=== PATIENT | female | born 1995 | race American Indian/Alaskan Native ===

== ENCOUNTER 2019-12-31 23:19 | Inpatient (IN) | payer OTHER ==
[2020-01-01] MEDS ORDERED: MINERAL OIL 30 ML ORAL LIQD PO PRN (00:22)
[2020-01-01] MEDS ORDERED: BUTORPHANOL 2 MG/1 ML INJ IV PRN (00:22)
[2020-01-01] MEDS ORDERED: AMPICILLIN/NS 2 GM/100 ML 2 GM/100 ML BAG IV ONE (00:22)
[2020-01-01] MEDS ORDERED: TERBUTALINE 1 MG/1 ML INJ SUB-Q PRN (00:22)
[2020-01-01] MEDS ORDERED: LIDOCAINE (2%) 20 MG/1 ML VIAL 20 ML MDV INFILTRATI ONE (00:22)
[2020-01-01] MEDS ORDERED: ePHEDrine SULFATE 50 MG/1 ML INJ IV PRN ×2 (00:22→11:18)
[2020-01-01] MEDS ORDERED: OXYTOCIN DRIP 30 UNITS/500 ML BAG IV SCH ×2 (01:00)
[2020-01-01] MEDS: LACTATED RINGERS 1,000 ML IV SCH ×3 (01:21→20:16)
[2020-01-01 02:38] LABS: Hematocrit 32.3 % (30.3-42.9); Hemoglobin 10.8 gm/dl (10.1-14.3); Mean Corpuscular HGB Conc 34 % (30-34); Mean Corpuscular Volume 94 fl (79-97); Platelet Count 306 K/mm3 (140-440); Red Blood Count 3.45 M/mm3 (3.65-5.03); Red Cell Distribution Width 15.2 % (13.2-15.2)
[2020-01-01] MEDS: AMPICILLIN/NS 1 GM/50 ML 1 GM/50 ML BAG IV SCH ×4 (05:10→18:40)
--- NOTE | 2020-01-01 07:46 | History and Physical Report ---
History of Present Illness Date of examination: 01/01/20 Date of admission: 01/01/20 00:22 Chief complaint: Water broke History of present illness: Pt is a 24 yo at 38w1d EGA who presents reporting leaking clear fluid since 2244 last night. She reports no movement this morning, but positive movement last night. She reports contractions since receiving Pitocin and denies vaginal bleeding. [facility] since the first trimester. Her course has been complicated by Chlamydia, treated with negative test of cure, obesity, and elevated BP without diagnosis of hypertension. She is GBS negative. Past History Past Medical History: no pertinent history Past Surgical History: no surgical history [employer] History: chlamydia (this , treated with negative test of cure) Family/Genetic History: none Social history: no significant social history - Obstetrical History Expected Date of Delivery: 01/14/20 Actual Gestation: 38 Week(s) 1 Day(s) : 1 Para: 0 Medications and Allergies Allergies Allergy/AdvReac Type Severity Reaction Status Date / Time morphine Allergy Anaphylaxis Verified 01/01/20 00:21 Home Medications Medication Instructions Recorded Confirmed Last Taken Type No Known Home Medications [No 01/01/20 01/01/20 Unknown History Reported Home Medications] Active Meds: Active Medications Butorphanol Tartrate (Stadol) 1 mg IV Q2H PRN PRN Reason: Pain, Moderate(4-6) LABOR PAIN Ephedrine Sulfate (Ephedrine Sulfate) 10 mg IV Q2M PRN PRN Reason: Hypotension Oxytocin/Sodium Chloride (Pitocin/Ns 30 Unit/500ml) 30 units in 500 mls @ 2 mls/hr IV TITR ZACHARIAH; Protocol Last Titration: 01/01/20 05:58 Dose: 4 mls/hr, 4 mls/hr Documented by: Lactated Ringer's (Lactated Ringers) 1,000 mls @ 125 mls/hr IV DIRECT ZACHARIAH Last Admin: 01/01/20 01:21 Dose: 125 mls/hr Documented by: Oxytocin/Sodium Chloride (Pitocin/Ns 30 Unit/500ml) 30 units in 500 mls @ 40 mls/hr IV TITR ZACHARIAH; Protocol Ampicillin Sodium (Ampicillin/Ns 1 Gm/50 Ml) 1 gm in 50 mls @ 100 mls/hr IV Q4HR ZACHARIAH; Protocol Last Admin: 01/01/20 05:10 Dose: 100 mls/hr Documented by: Mineral Oil (Mineral Oil) 30 ml PO QHS PRN PRN Reason: Constipation Terbutaline Sulfate (Brethine) 0.25 mg SUB-Q ONCE PRN PRN Reason: Hyperstimulation/Hypertonicity Review of Systems All systems: negative Genitourinary: leakage of fluid, contractions, no vaginal bleeding - Vital Signs Vital signs: Vital Signs Pulse BP 118 H 137/86 12/31/19 23:49 12/31/19 23:49 Temp Pulse Resp BP Pulse Ox 97.7 F 117 H 24 171/96 98 01/01/20 05:15 01/01/20 07:40 01/01/20 00:48 01/01/20 07:26 01/01/20 07:40 - Physical Exam Lungs: Positive: Normal air movement Abdomen: Positive: soft Genitourinary (Female): Positive: normal external genitalia, normal perenium. Negative: perineal/vulvar lesions Uterus: Positive: enlarged (gravid) - Obstetrical FHR: category 1 Uterine Contraction Monitor Mode: External Cervical Dilatation: 4 Cervical Effacement Percentage: 50 station: -3 Uterine Contraction Frequency (min): 3 Uterine Contraction Duration: 50 Uterine Contraction Pattern: Regular Uterine Tone Measurement Phase: Contraction Uterine Contraction Intensity: Moderate Results Result Diagrams: 01/01/20 02:22 Abnormal lab results 01/01/20 Range/Units 02:22 RBC 3.45 L (3.65-5.03) M/mm3 All other labs normal. Assessment and Plan A: 24 yo at 38w1d EGA Membranes ruptured x9 hours GBS negative Obesity Chlamydia this Elevated BP once this without diagnosis of hypertension P: Admit to L&D Pitocin augmentation IUPC and FSE placed Anticipate
[2020-01-01 09:27] LABS: Alanine Aminotransferase 8 units/L (7-56); Albumin 2.9 g/dL (3.9-5); BUN/Creatinine Ratio 8; Blood Urea Nitrogen 3 mg/dL (7-17); Calcium 8.4 mg/dL (8.4-10.2); Hemolysis Index 12; Uric Acid 3.7 mg/dL (3.5-7.6)
[2020-01-01] MEDS: ONDANSETRON 4 MG/2 ML INJ IV PRN ×2 (10:49→23:49)
[2020-01-01] MEDS ORDERED: PROMETHAZINE 25 MG TAB PO PRN (11:00)
[2020-01-01] MEDS ORDERED: NALOXONE 2 MG/2 ML INJ IV PRN (11:18)
--- NOTE | 2020-01-01 11:20 | Anesthesia Consultation ---
Anesthesia Consult and Med Hx Date of service: 01/01/20 - Airway Anesthetic Teeth Evaluation: Good, Poor ROM Head & Neck: Adequate Mental/Hyoid Distance: Adequate Mallampati Class: Class III Intubation Access Assessment: Good - Pulmonary Exam CTA: Yes - Cardiac Exam Cardiac Exam: RRR - Pre-Operative Health Status ASA Pre-Surgery Classification: ASA3 Proposed Anesthetic Plan: Epidural - Pulmonary Hx Smoking: No Hx Asthma: No Hx Respiratory Symptoms: No SOB: No COPD: No Home Oxygen Therapy: No Hx Pneumonia: No Hx Sleep Apnea: No - Cardiovascular System Hx Hypertension: No Hx Coronary Artery Disease: No Hx Heart Attack/AMI: No Hx Angina: No Hx Percutaneous Transluminal Coronary Angioplasty (PTCA): No Hx Cardia Arrhythmia: No Hx Pacemaker: No Hx Internal Defibrillator: No Hx Valvular Heart Disease: No Hx Heart Murmur: No - Central Nervous System Hx Neuromuscular Disorder: No Hx Seizures: No CVA: No Hx Back Pain: Yes Hx Psychiatric Problems: No - Gastrointestinal Hx Ulcer: No Hx Gastroesophageal Reflux Disease: Yes - Endocrine Hx Renal Disease: No Hx End Stage Renal Disease: No Hx Cirrhosis: No Hx Liver Disease: No Hx Insulin Dependent Diabetes: No Hx Non-Insulin Dependent Diabetes: No Hx Thyroid Disease: No Hx Hypothyroidism: No Hx Hyperthyroidism: No - Hematic Hx Anemia: No Hx Sickle Cell Disease: No - Other Systems Hx Alcohol Use: No Hx Substance Use: No Hx Cancer: No Hx Obesity: Yes
[2020-01-01] MEDS ORDERED: DEXMEDETOMIDINE 200 MCG/2 ML VIAL IV ONE (11:21)
[2020-01-01] MEDS ORDERED: fentaNYL-BUPIV 2 MCG/ML-0.125% 200 MCG/100 ML BAG EPIDURAL SCH (12:00)
--- NOTE | 2020-01-01 12:19 | Progress Note ---
Labor Epidural - Labor Epidural Start Time: 11:27 Stop Time: 11:52 Performed by:: MARLIN NAILS Procedure: Patient is requesting combined spinal epidural for labor and pain. H&P, labs were reviewed. All questions and concerns were answered. Informed consent was obtained. Timeout performed. Patient in sitting position on side of bed. Sterile prep and drape was performed. 3 mL 1% lidocaine skin wheal at L [3]-L [4]. 18-gauge Touhy epidural needle advanced to [id number] using air technique, [8]. 27-gauge spinal needle advanced, positive free-flowing CSF. Spinal dose of [precedex 10 mcg]. Epidural catheter advanced to [12] cm. [-] Aspiration, [-] test dose. Sterile dressing applied. Patient tolerated procedure well.
--- NOTE | 2020-01-01 20:18 | Event Note ---
Date: 01/01/20 Pt now comfortable with epidural. Category II tracing. SVE: 9.5/100/+1. Continue routine intrapartum care.
[2020-01-01] MEDS ORDERED: FAMOTIDINE 20 MG/2 ML INJ IV ONE (21:19)
[2020-01-01] MEDS ORDERED: FAMOTIDINE 20 MG/2 ML INJ IV SCH (21:30)
[2020-01-01] MEDS ORDERED: GENTAMICIN 200 MG in SODIUM CHLORIDE 0.9% 100 ML IV SCH (22:00)
--- NOTE | 2020-01-01 22:06 | Event Note ---
Date: 01/01/20 S: Temp 100.1. Epidural off. Pt more uncomfortable with contractions. Category II tracing. SVE: /+2. Pt unable to feel to push. Pt developing chorioamnionitis. Add Gentamicin to antibiotic regimen. Closely monitor maternal and status.
[2020-01-01] MEDS ORDERED: GENTAMICIN 130 MG in SODIUM CHLORIDE 0.9% 100 ML IV SCH (22:15)
--- NOTE | 2020-01-01 23:26 | Procedure Note ---
OB Delivery Note - Delivery Date of Delivery: 01/01/20 Surgeon: ROSALVA MATTHEWS Estimated blood loss: 300cc - Vaginal Delivery presentation: vertex Delivery position: OA Intrapartum events: PROM->1hr before delivery, prolonged active phase, mult.variable deceleratio Delivery induction: none Delivery augmentation: pitocin Delivery monitor: external FHT, external uterine Route of delivery: Delivery placenta: spontaneous Delivery cord: 3 umbilical vessels Episiotomy: none Delivery laceration: none Anesthesia: epidural - A at 1 minute: 8 at 5 minutes: 9 Infant Gender: Male (3076g (6lb 12.5oz) @ 2306pm)
[2020-01-02] MEDS ORDERED: IBUPROFEN 600 MG TAB PO SCH (01:00)
[2020-01-02] MEDS ORDERED: LANOLIN/ZINC/DIMETHICONE (LANSINOH) 7 GM TP PRN ×2 (02:09)
[2020-01-02] MEDS ORDERED: MAGNESIUM HYDROXIDE (MOM) ORAL LIQD UDC PO PRN (02:09)
[2020-01-02] MEDS ORDERED: WITCH HAZEL/ GLYCERIN PAD TP PRN (02:09)
[2020-01-02] MEDS ORDERED: ACETAMINOPHEN 325 MG TAB PO PRN (02:09)
[2020-01-02] MEDS ORDERED: ONDANSETRON 4 MG/2 ML INJ IV PRN (02:09)
[2020-01-02] MEDS ORDERED: diphenhydrAMINE 25 MG CAP PO PRN (02:09)
[2020-01-02] MEDS ORDERED: OXYTOCIN DRIP 30 UNITS/500 ML BAG IV SCH (02:09)
[2020-01-02] MEDS ORDERED: PROMETHAZINE 25 MG TAB PO PRN (02:09)
[2020-01-02] MEDS ORDERED: PROMETHAZINE 25 MG RECT SUPP PR PRN (02:09)
[2020-01-02] MEDS ORDERED: BENZOCAINE/MENTHOL 20/0.5% TOP SPRAY 56 GM TP PRN (02:09)
[2020-01-02] MEDS: IBUPROFEN 600 MG TAB PO SCH ×4 (05:46→23:18)
--- NOTE | 2020-01-02 08:11 | Progress Note ---
Assessment and Plan A: PPD1 s/p and intraamniotic infection s/p amp/gent Gestational hypertension Afebrile Awaiting H&H P: Routine care Closely monitor clinical status Subjective - Subjective Date of service: 01/02/20 Principal diagnosis: s/p , intraamniotic infection Interval history: PPD1 s/p , prolonged ROM with fever Tmax 100.1F, currently afebrile. Occasional mild range BP noted, pt denies ZENDEJAS, scotomata, or face/hand swelling. Patient reports: appetite normal, voiding normally, pain well controlled, ambulating normally : doing well, bottle feeding Objective - Vital Signs Latest vital signs: Vital Signs Temp Pulse Resp BP BP BP Pulse Ox 01/02/20 05:50 98.0 F 116 H 20 119/72 98 01/02/20 05:46 20 01/02/20 02:05 98.3 F 120 H 20 140/86 99 01/02/20 01:27 98.8 F 01/02/20 00:49 127 H 132/69 01/02/20 00:18 125 H 132/83 01/01/20 23:20 130 H 100 01/01/20 23:18 127 H 119/58 01/01/20 23:15 128 H 99 01/01/20 23:10 134 H 98 01/01/20 23:09 98.6 F 01/01/20 22:59 75 L 01/01/20 22:50 88 01/01/20 22:46 137 H 98 01/01/20 22:41 130 H 99 01/01/20 22:39 82 L 01/01/20 22:35 143 H 82 L 01/01/20 22:33 80 L 01/01/20 22:30 134 H 99 01/01/20 22:25 134 H 100 01/01/20 22:20 133 H 100 01/01/20 22:19 134 H 131/71 01/01/20 22:17 98.5 F 01/01/20 22:15 131 H 100 01/01/20 22:10 130 H 100 01/01/20 22:05 146 H 100 01/01/20 22:00 143 H 100 01/01/20 21:55 144 H 100 01/01/20 21:54 28 L 01/01/20 21:50 154 H 94 01/01/20 21:49 143 H 91 01/01/20 21:45 137 H 100 01/01/20 21:42 100.1 F H 01/01/20 21:40 143 H 97 01/01/20 21:38 53 L 82 L 01/01/20 21:35 134 H 100 01/01/20 21:30 136 H 99 01/01/20 21:28 64 L 01/01/20 21:25 140 H 76 L 01/01/20 21:20 68 88 01/01/20 21:15 129 H 100 01/01/20 21:10 136 H 100 01/01/20 21:05 122 H 100 01/01/20 21:00 131 H 99 01/01/20 20:55 129 H 100 01/01/20 20:50 122 H 100 01/01/20 20:49 123 H 135/69 01/01/20 20:45 119 H 100 01/01/20 20:40 115 H 100 01/01/20 20:35 113 H 100 01/01/20 20:30 119 H 99 01/01/20 20:25 115 H 100 01/01/20 20:20 117 H 100 01/01/20 20:15 122 H 100 01/01/20 20:10 120 H 100 01/01/20 20:05 138 H 100 01/01/20 20:00 133 H 100 01/01/20 19:59 97.6 F 01/01/20 19:55 118 H 100 01/01/20 19:50 112 H 100 01/01/20 19:49 112 H 114/60 01/01/20 19:45 130 H 100 01/01/20 19:40 121 H 100 01/01/20 19:35 113 H 100 01/01/20 19:30 111 H 100 01/01/20 19:25 116 H 100 01/01/20 19:20 115 H 100 01/01/20 19:15 118 H 123/67 100 01/01/20 19:14 98.1 F 121 H 22 123/67 100 01/01/20 19:10 125 H 100 01/01/20 19:07 98.2 F 01/01/20 19:05 129 H 100 01/01/20 19:00 143 H 100 01/01/20 18:55 128 H 100 20 18:50 124 H 100 20 18:48 114 H 129/72 20 18:45 118 H 100 20 18:40 117 H 100 20 18:35 115 H 100 20 18:30 114 H 100 20 18:25 115 H 100 20 18:24 113 H 147/91 01/01/20 18:20 117 H 142/83 98 01/01/20 17:19 134 H 144/83 01/01/20 17:10 98 F 01/01/20 16:22 82 L 01/01/20 16:19 116 H 141/73 01/01/20 16:11 60 79 L 01/01/20 16:08 121 H 96 01/01/20 16:06 117 H 85 01/01/20 16:01 118 H 94 01/01/20 15:59 121 H 98 01/01/20 15:55 122 H 84 01/01/20 15:54 115 H 100 20 15:49 117 H 100 20 15:44 116 H 100 1420 15:39 111 H 100 1420 15:34 114 H 100 1420 15:29 112 H 100 01/01/20 15:24 113 H 100 01/01/20 15:19 115 H 124/71 100 01/01/20 15:14 114 H 100 1420 15:09 112 H 100 01/01/20 15:04 110 H 100 01/01/20 15:00 97.6 F 01/01/20 14:59 112 H 100 20 14:54 110 H 100 1420 14:49 111 H 100 1420 14:48 111 H 132/74 20 14:44 110 H 100 1420 14:39 111 H 100 1420 14:34 114 H 100 20 14:29 104 H 100 01/01/20 14:24 109 H 100 1420 14:19 110 H 133/80 100 1420 14:14 124 H 100 20 14:09 114 H 99 01/01/20 14:04 112 H 100 01/01/20 13:59 128 H 100 01/01/20 13:54 114 H 100 01/01/20 13:50 109 H 136/91 01/01/20 13:49 110 H 89 01/01/20 13:43 75 81 L 01/01/20 13:42 109 H 100 01/01/20 13:37 107 H 99 01/01/20 13:34 114 H 84 01/01/20 13:32 109 H 99 01/01/20 13:27 112 H 99 01/01/20 13:22 111 H 99 01/01/20 13:19 108 H 136/79 01/01/20 13:17 113 H 99 01/01/20 13:12 109 H 99 01/01/20 13:07 112 H 99 01/01/20 13:02 112 H 100 01/01/20 12:57 111 H 100 01/01/20 12:52 113 H 100 01/01/20 12:48 116 H 135/92 01/01/20 12:47 113 H 100 01/01/20 12:43 117 H 129/84 01/01/20 12:42 111 H 100 01/01/20 12:39 115 H 133/82 01/01/20 12:37 113 H 99 01/01/20 12:33 112 H 130/79 01/01/20 12:32 109 H 100 01/01/20 12:28 97.5 F L 111 H 125/80 01/01/20 12:27 111 H 100 01/01/20 12:23 109 H 130/79 01/01/20 12:22 109 H 100 01/01/20 12:18 103 H 128/80 01/01/20 12:17 108 H 100 01/01/20 12:13 113 H 132/81 01/01/20 12:12 109 H 100 01/01/20 12:08 108 H 130/83 01/01/20 12:07 107 H 100 01/01/20 12:06 72 85 01/01/20 12:03 108 H 135/76 01/01/20 12:00 110 H 95 01/01/20 11:59 109 H 94 01/01/20 11:58 104 H 138/85 01/01/20 11:55 108 H 81 L 01/01/20 11:52 110 H 132/88 93 01/01/20 11:50 109 H 137/90 98 01/01/20 11:48 108 H 136/86 01/01/20 11:45 113 H 99 01/01/20 11:44 111 H 137/83 01/01/20 11:42 109 H 142/89 01/01/20 11:40 112 H 99 01/01/20 11:37 118 H 144/89 01/01/20 11:35 115 H 100 01/01/20 11:33 111 H 141/92 01/01/20 11:30 114 H 98 01/01/20 11:27 113 H 140/91 01/01/20 11:25 113 H 99 01/01/20 11:20 112 H 99 01/01/20 11:15 114 H 97 01/01/20 11:10 109 H 99 01/01/20 11:05 108 H 97 01/01/20 11:00 114 H 97 01/01/20 10:55 109 H 98 01/01/20 10:50 114 H 97 01/01/20 10:45 115 H 98 01/01/20 10:40 111 H 98 01/01/20 10:35 118 H 98 01/01/20 10:30 117 H 93 01/01/20 10:25 108 H 99 01/01/20 10:20 108 H 98 01/01/20 10:15 105 H 98 01/01/20 10:10 109 H 97 01/01/20 10:05 111 H 98 01/01/20 10:00 109 H 98 01/01/20 09:55 112 H 99 01/01/20 09:50 109 H 98 01/01/20 09:45 109 H 98 01/01/20 09:40 114 H 99 01/01/20 09:35 122 H 97 01/01/20 09:30 111 H 99 01/01/20 09:25 110 H 96 01/01/20 09:20 115 H 96 01/01/20 09:15 109 H 99 01/01/20 09:10 109 H 99 01/01/20 09:05 111 H 98 01/01/20 09:00 109 H 94 01/01/20 08:59 111 H 93 01/01/20 08:55 109 H 96 01/01/20 08:50 110 H 94 01/01/20 08:45 103 H 98 01/01/20 08:40 101 H 94 01/01/20 08:37 104 H 94 01/01/20 08:35 100 H 97 01/01/20 08:32 106 H 94 01/01/20 08:30 105 H 96 01/01/20 08:27 100 H 131/87 01/01/20 08:25 107 H 95 01/01/20 08:21 108 H 94 01/01/20 08:20 110 H 95 01/01/20 08:15 108 H 94 01/01/20 08:10 100 H 97 01/01/20 08:09 114 H 94 Intake and Output 01/01/20 01/02/20 01/02/20 23:59 07:59 15:59 Intake Total 174.60 Balance 174.60 Intake: IV 174.60 Lactated Ringers 1,000 ml 118.75 @ 125 mls/hr IV DIRECT ZACHARIAH Rx#:[id number] PITOCin/NS 30 UNIT/500ML 55.85 30 units In 500 ml @ 2 mls/hr IV TITR ZACHARIAH Rx#: [id number] Other: Estimated Blood Loss 300 - Exam Lungs: Present: Normal air movement Abdomen: Present: soft. Absent: distention Uterus: Present: firm, fundal height below umbilicus. Absent: bogginess Extremities: Present: normal - Labs Labs: Abnormal lab results 01/01/20 Range/Units 08:44 Sodium 136 L (137-145) mmol/L Potassium 3.5 L (3.6-5.0) mmol/L Carbon Dioxide 18 L (22-30) mmol/L BUN 3 L (7-17) mg/dL Creatinine 0.4 L (0.6-1.2) mg/dL Albumin 2.9 L (3.9-5) g/dL
--- NOTE | 2020-01-02 08:14 | Post Anesthesia Evaluation ---
- Post Anesthesia Evaluation Patient Participated: Yes Airway Patent: Yes Stable Respiratory Function: Yes Nausea/Vomiting: No Temp > 96.8F: Yes Pain Manageable: Yes Adequeate Hydration: Yes Anesthesia Complications: No Block Receding Appropriately: Yes Patient on Ventilator: No
[2020-01-02] MEDS: FERROUS SULFATE 325 MG TAB PO SCH ×2 (10:18→21:46)
[2020-01-02 13:49] LABS: Hematocrit 31.1 % (30.3-42.9); Hemoglobin 10.3 gm/dl (10.1-14.3)
[2020-01-02] MEDS: HYDROcodone/ACETAMINOPHEN 5-325 MG TAB PO PRN (16:29)
--- NOTE | 2020-01-02 17:11 | Discharge Summary ---
Providers - Providers Date of Admission: 01/01/20 00:22 Date of discharge: 01/03/20 Attending physician: GENEVA DAILY 01/02/20 02:09 Consult to Rn Informatics [CONS] Routine Reason For Exam: assistance with , SNS Primary care physician: GENEVA DAILY Hospitalization Reason for admission: rupture of membranes, IUP at term Delivery: Episiotomy: none Laceration: none Other procedures: none complications: none Discharge diagnosis: IUP at term delivered Hospital course: Pt presented with rupture of membranes at term. She developed a temperature of 100.1 degrees F and received Ampicillin and Gentamicin. She was diagnosed with gestational hypertension. She met discharge criteria on PPD2 and will follow up with [facility] in 1 week. Condition at discharge: Good Disposition: DC-01 TO HOME OR SELFCARE Plan - Discharge Medications Prescriptions: Ferrous Sulfate [Feosol 325 MG tab] 325 mg PO BID #60 tablet Ibuprofen [Motrin] 600 mg PO Q6H PRN #60 tablet PRN Reason: Pain - Provider Discharge Summary Activity: routine, no sex for 6 weeks, no heavy lifting 4 weeks, no strenuous exercise Diet: routine Instructions: routine Additional instructions: [] Smoking cessation referral if applicable(refer to patient education folder for contact #) [] Refer to [facility] Booklet Call your doctor immediately for: * Fever > 100.5 * Heavy vaginal bleeding ( >1 pad per hour) * Severe persistent headache * Shortness of breath * Reddened, hot, painful area to leg or breast * Drainage or odor from incision. * Keep incision clean and dry at all times and follow doctor's instructions regarding bathing/showering - Follow up plan Follow up: RENETTA ANG CNM [Advanced Practice Nurse] - 7 Days
[2020-01-02] MEDS ORDERED: MEASLES, MUMPS & RUBELLA 12,500 UNIT/0.5 ML VACCINE SUB-Q ONE (23:27)
[2020-01-03] MEDS: IBUPROFEN 600 MG TAB PO SCH ×2 (05:47→12:54)
[2020-01-03] MEDS ORDERED: DIPHtheria,PERTUSSIS(ACELL),TETANUS VACCINE/PF 0.5 ML VIAL IM ONE (06:00)
[2020-01-03] MEDS: HYDROcodone/ACETAMINOPHEN 5-325 MG TAB PO PRN (09:29)
[2020-01-03] MEDS: FERROUS SULFATE 325 MG TAB PO SCH (09:30)
[2020-01-03 16:24] VITALS: BP 124/76
== END 2020-01-03 17:45 | disposition home or self-care (01) | DRG 775 ==
LOC: APU 23:19 → TRG 23:19 → LD 01-01 00:22 → TRG 01-01 00:22 → OBSVTOIN 01-01 00:22 → OB 01-02 01:45
PROVIDERS: ADMIT Obstetrics & Gynecology; ATTEND Obstetrics & Gynecology
PROC: 10E0XZZ Delivery of Products of Conception, External Approach (ICD-10-PCS; principal; 2020-01-01)
PROC: 3E0R3BZ Introduction of Anesthetic Agent into Spinal Canal, Percutaneous Approach (ICD-10-PCS; 2020-01-01)
PROC: 00HU33Z Insertion of Infusion Device into Spinal Canal, Percutaneous Approach (ICD-10-PCS; 2020-01-01)
DX: O13.4 Gestational [pregnancy-induced] hypertension without significant proteinuria, complicating childbirth (principal); O42.02 Full-term premature rupture of membranes, onset of labor within 24 hours of rupture; Z37.0 Single live birth; Z3A.38 38 weeks gestation of pregnancy; Z20.828 Contact with and (suspected) exposure to other viral communicable diseases; Z88.5 Allergy status to narcotic agent; O99.62 Diseases of the digestive system complicating childbirth; K21.9 Gastro-esophageal reflux disease without esophagitis; O76 Abnormality in fetal heart rate and rhythm complicating labor and delivery
CPT/HCPCS: 36415; 80053; 84550; 85014; 85018; 85027; 86592; 86850; 86900; 86901; 88307; G0378; J0290; J0595; J1580; J2405; J2590; J3490; J7120; U0003-CS

== ENCOUNTER 2020-01-26 20:18 | Emergency (ER) | payer OTHER ==
[2020-01-26] MEDS ORDERED: ASPIRIN 325 MG TAB PO ONE (20:50)
[2020-01-26 21:25] LABS: Basophils # (Auto) 0.1 K/mm3 (0.0-0.1); Basophils % (Auto) 0.5 % (0.0-1.8); Eosinophils % (Auto) 0.3 % (0.0-4.3); Hematocrit 30.2 % (30.3-42.9); Hemoglobin 10.1 gm/dl (10.1-14.3); Lymphocytes # (Auto) 2.1 K/mm3 (1.2-5.4); Mean Corpuscular HGB Conc 34 % (30-34); Mean Corpuscular Volume 94 fl (79-97); Monocytes # (Auto) 0.6 K/mm3 (0.0-0.8); Monocytes % (Auto) 5.3 % (0.0-7.3); Platelet Count 400 K/mm3 (140-440); Red Cell Distribution Width 14.6 % (13.2-15.2)
[2020-01-26] MEDS ORDERED: FUROSEMIDE 40 MG/4 ML INJ IV ONE (21:33)
[2020-01-26 21:44] LABS: BUN/Creatinine Ratio 13; Blood Urea Nitrogen 9 mg/dL (7-17); Calcium 8.7 mg/dL (8.4-10.2); Hemolysis Index 6
--- NOTE | 2020-01-26 21:45 | Emergency Department Report ---
ED Shortness of Breath HPI - General Chief Complaint: Chest Pain Stated Complaint: ASIYA/CHEST HURTS Time Seen by Provider: 01/26/20 21:31 Source: patient Mode of arrival: Ambulatory Limitations: No Limitations - History of Present Illness Initial Comments: Chief complaint: Shortness of breath chest heaviness HPI: This is a 24-year-old female who was recently diagnosed with peripartum cardiomyopathy after delivering her baby on December 31. At [facility], she was diagnosed with "an enlarged heart". She has been followed by quality lead. She has had shortness of breath chest heaviness for the past several days. She feels short of breath with chest a few steps. She also feels chest fullness when she lays flat. She has taken all her medications. She denies discrete pain. She has nonproductive cough. Denies fever chills. No abdominal pain. MD Complaint: shortness of breath -: Gradual, days(s) (2) Severity: severe Consistency: constant Improves With: rest Worsens With: exertion, other (Laying flat) Known History Of: other (Peripartum cardiomyopathy) Context: other (Diagnosed 3 weeks ago) Associated Symptoms: chest pain (Chest heaviness) - Related Data Home Medications Medication Instructions Recorded Confirmed Last Taken Furosemide [Lasix TAB] 40 mg PO QDAY 01/26/20 01/26/20 Unknown Metoprolol 25 mg PO DAILY 01/26/20 01/26/20 Unknown hydrALAZINE [Apresoline] 25 mg PO DAILY 01/26/20 01/26/20 Unknown Allergies Allergy/AdvReac Type Severity Reaction Status Date / Time morphine Allergy Anaphylaxis Verified 01/01/20 00:21 ED Review of Systems ROS: Stated complaint: ASIYA/CHEST HURTS Other details as noted in HPI Comment: All other systems reviewed and negative Constitutional: denies: chills, fever, malaise Respiratory: cough, shortness of breath. denies: wheezing Gastrointestinal: denies: abdominal pain, nausea, vomiting ED Past Medical Hx - Past Medical History Previous Medical History?: Yes Hx Hypertension: No Hx Heart Attack/AMI: No Hx Congestive Heart Failure: Yes (Post ) Hx Diabetes: No Hx Deep Vein Thrombosis: No Hx Liver Disease: No Hx Renal Disease: No Hx Sickle Cell Disease: No Hx Seizures: No Hx Asthma: No Hx COPD: No Hx HIV: No - Surgical History Past Surgical History?: No Hx Pacemaker: No Hx Internal Defibrillator: No - Social History Smoking Status: Never Smoker Substance Use Type: None - Medications Home Medications: Home Medications Medication Instructions Recorded Confirmed Last Taken Type Furosemide [Lasix TAB] 40 mg PO QDAY 01/26/20 01/26/20 Unknown History Metoprolol 25 mg PO DAILY 01/26/20 01/26/20 Unknown History hydrALAZINE [Apresoline] 25 mg PO DAILY 01/26/20 01/26/20 Unknown History ED Physical Exam - General Limitations: No Limitations General appearance: alert, other (Patient is short of breath while attempting to speak, needed to catch her breath after ambulating to treatment room) - Head Head exam: Present: atraumatic, normocephalic - Eye Eye exam: Present: normal appearance - ENT ENT exam: Present: mucous membranes moist - Neck Neck exam: Present: normal inspection, full ROM - Respiratory Respiratory exam: Present: decreased breath sounds, other (Patient has tachypnea. She has a hard time completing full word sentences.). Absent: wheezes, rales, rhonchi - Cardiovascular Cardiovascular Exam: Present: normal rhythm, tachycardia, normal heart sounds. Absent: systolic murmur, diastolic murmur, rubs, gallop - GI/Abdominal GI/Abdominal exam: Present: soft. Absent: distended, tenderness, guarding, rebound - Extremities Exam Extremities exam: Present: normal inspection - Neurological Exam Neurological exam: Present: alert, oriented X3 - Psychiatric Psychiatric exam: Present: normal affect, normal mood - Skin Skin exam: Present: warm, dry, intact, normal color. Absent: rash ED Course Vital Signs 01/26/20 01/26/20 01/27/20 20:36 22:16 01:49 Temperature 95.0 F L 98.3 F Pulse Rate 117 H 107 H Respiratory 18 20 18 Rate Blood Pressure 107/88 Blood Pressure 123/88 [Left] O2 Sat by Pulse 95 91 95 Oximetry ED Medical Decision Making - Lab Data Result diagrams: 01/26/20 21:15 01/26/20 21:15 Laboratory Results - last 24 hr 01/26/20 01/26/20 01/26/20 21:15 21:15 21:15 WBC 10.8 RBC 3.20 L Hgb 10.1 Hct 30.2 L MCV 94 MCH 32 MCHC 34 RDW 14.6 Plt Count 400 Lymph % (Auto) 20.0 [place] % (Auto) 5.3 Eos % (Auto) 0.3 Baso % (Auto) 0.5 Lymph # (Auto) 2.1 [place] # (Auto) 0.6 Eos # (Auto) 0.0 Baso # (Auto) 0.1 Seg Neutrophils % 73.9 H Seg Neutrophils # 8.0 H Sodium 139 Potassium 3.0 L Chloride 102.8 Carbon Dioxide 25 Anion Gap 14 BUN 9 Creatinine 0.7 Estimated GFR > 60 BUN/Creatinine Ratio 13 Glucose 104 H Calcium 8.7 HCG, Qual Negative - EKG Data EKG shows normal: sinus rhythm, axis, intervals Rate: tachycardia - EKG Data 01/26/20 21:45 EKG obtained 2057 EKG interpreted by de Sinus tachycardia rate 115 bpm normal axis normal intervals no ST elevation nonspecific T wave pattern poor R wave progression in the anterior leads - Radiology Data Radiology results: report reviewed CHEST 1 VIEW INDICATION / CLINICAL INFORMATION: 3 weeks , shortness of breath. COMPARISON: None available. FINDINGS: SUPPORT DEVICES: None. HEART / MEDIASTINUM: Cardiac silhouette size is upper limits of normal. LUNGS / PLEURA: There is large area of parenchymal disease occupying the right lung. There is some additional disease within the left upper lobe. No significant pleural effusion. No pneumothorax. ADDITIONAL FINDINGS: No significant additional findings. IMPRESSION: 1. Large area of airspace disease throughout the right lung, most likely pneumonia. I suspect there is pneumonia within the left upper lobe as well. CTA CHEST WITH IV CONTRAST INDICATION / CLINICAL INFORMATION: dyspnea hypoxia pna hospitalization recent. Patient is 3 weeks TECHNIQUE: Axial CT images were obtained through the chest after injection of 100 mL IV contrast. 3 plane MIP and/or 3D reconstructions were produced. All CT scans at this location are performed using CT dose reduction for [place] by means of automated exposure control. COMPARISON: Chest radiograph earlier today FINDINGS: PULMONARY ARTERIES: No pulmonary emboli. THORACIC AORTA: No significant abnormality. HEART: Heart size is mildly enlarged. CORONARY ARTERIES: No significant calcification. PLEURA: Small right pleural effusion is present. No pneumothorax. LYMPH NODES: No significant adenopathy. LUNGS: There is significant parenchymal disease throughout both lungs, but worse throughout the right lung including the right upper lobe, right middle lobe, and right lower lobe. There is similar parenchymal disease throughout the left lung but to a less severe extent. ADDITIONAL FINDINGS: None. UPPER ABDOMEN: No acute findings. SKELETAL STRUCTURES: No significant osseous abnormality. IMPRESSION: 1. No CT evidence for pulmonary embolism. 2. Marked bilateral pulmonary opacities with consolidation. The appearance is most suggestive for bilateral multifocal pneumonia, worse throughout the right lung. There is an associated small right pleural effusion. - Medical Decision Making Ms. Callejas presents with shortness of breath. History of peripartum cardiomyopathy. Patient has multifocal pneumonia with large involvement of the right lung. Patient decided to leave AGAINST MEDICAL ADVICE. She understands the risk of respiratory arrest, worsening illness. She has decision-making capacity. Oxygen saturation on room air 95%. She needs to arrange childcare for her new baby. She received first dose IV antibiotics prior to being discharged AGAINST MEDICAL ADVICE. Patient is not breast-feeding. She understands to not attempt to breast-feed while receiving these type of antibiotics. Considerations: Community-acquired pneumonia bacterial infection versus influenza with superimposed staphylococcal infection versus COVID-19 pneumonia Critical care attestation.: If time is entered above; I have spent that time in minutes in the direct care of this critically ill patient, excluding procedure time. ED Disposition Clinical Impression: Multifocal pneumonia, Healthcare-associated pneumonia Disposition: [id number] LEFT AGAINST MED ADVICE Is pt being admited?: No Does the pt Need Aspirin: No Condition: Stable Instructions: Bacterial Pneumonia (ED) Additional Instructions: Please return to the hospital as soon as possible to be admitted for pneumonia treatment. Forms: AMA Form
--- NOTE | 2020-01-26 22:45 | XRay Report ---
CHEST 1 VIEW INDICATION / CLINICAL INFORMATION: 3 weeks , shortness of breath. COMPARISON: None available. FINDINGS: SUPPORT DEVICES: None. HEART / MEDIASTINUM: Cardiac silhouette size is upper limits of normal. LUNGS / PLEURA: There is large area of parenchymal disease occupying the right lung. There is some ad ditional disease within the left upper lobe. No significant pleural effusion. No pneumothorax. ADDITIONAL FINDINGS: No significant additional findings. IMPRESSION: 1. Large area of airspace disease throughout the right lung, most likely pneumonia. I suspect there i s pneumonia within the left upper lobe as well. Signer Name: Carmen Rojas MD Signed: 01/26/2020 10:41 PM Workstation Name: [id number]
--- NOTE | 2020-01-26 22:59 | Cat Scan Report ---
CTA CHEST WITH IV CONTRAST INDICATION / CLINICAL INFORMATION: dyspnea hypoxia pna hospitalization recent. Patient is 3 weeks TECHNIQUE: Axial CT images were obtained through the chest after injection of 100 mL IV contrast. 3 plane MIP an d/or 3D reconstructions were produced. All CT scans at this location are performed using CT dose redu ction for [facility] by means of automated exposure control. COMPARISON: Chest radiograph earlier today FINDINGS: PULMONARY ARTERIES: No pulmonary emboli. THORACIC AORTA: No significant abnormality. HEART: Heart size is mildly enlarged. CORONARY ARTERIES: No significant calcification. PLEURA: Small right pleural effusion is present. No pneumothorax. LYMPH NODES: No significant adenopathy. LUNGS: There is significant parenchymal disease throughout both lungs, but worse throughout the right lung including the right upper lobe, right middle lobe, and right lower lobe. There is similar paren chymal disease throughout the left lung but to a less severe extent. ADDITIONAL FINDINGS: None. UPPER ABDOMEN: No acute findings. SKELETAL STRUCTURES: No significant osseous abnormality. IMPRESSION: 1. No CT evidence for pulmonary embolism. 2. Marked bilateral pulmonary opacities with consolidation. The appearance is most suggestive for aron ateral multifocal pneumonia, worse throughout the right lung. There is an associated small right pleu ral effusion. Signer Name: Carmen Rojas MD Signed: 01/26/2020 10:54 PM Workstation Name: [id number]
[2020-01-26] MEDS ORDERED: CEFEPIME/NS 2 GM/100 ML 2 GM/100 ML BAG IV SCH (23:45)
[2020-01-27 01:51] VITALS: BP 123/88
== END 2020-01-27 03:47 | disposition left against medical advice (07) ==
LOC: ED 20:18
DX: J18.8 Other pneumonia, unspecified organism (principal); I50.9 Heart failure, unspecified; Z79.899 Other long term (current) drug therapy; Z88.8 Allergy status to other drugs, medicaments and biological substances
CPT/HCPCS: 36415; 71045; 71275; 80048; 83880; 84484; 84703; 85025; 93005; 96365; 96375; 99285; J0692; J1940; Q9967